=== PATIENT | male | born 1990 | race Caucasian/White ===

== ENCOUNTER 2020-12-08 11:11 | Emergency (ER) | payer OTHER ==
[2020-12-08 11:31] VITALS: BP 118/79; PULSE 65; TEMP 98.3; BMI 30.8
[2020-12-08] MEDS ORDERED: METHOCARBAMOL 500 MG TABLET PO ONE (11:53)
[2020-12-08] MEDS ORDERED: IBUPROFEN 600 MG TABLET (FP) PO ONE ×2 (11:53→12:18)
[2020-12-08] MEDS ORDERED: METHOCARBAMOL 500 MG TABLET ONE (12:18)
== END 2020-12-08 12:20 | disposition home or self-care (01) ==
LOC: JERFT 11:11
DX: S39.012A Strain of muscle, fascia and tendon of lower back, initial encounter (principal)
CPT/HCPCS: 99283-25

== ENCOUNTER 2022-01-30 16:49 | Emergency (ER) | payer BC, OTHER ==
[2022-01-30 16:57] VITALS: BP 123/54; PULSE 57; TEMP 97.5; BMI 26.5
== END 2022-01-30 18:41 | disposition home or self-care (01) ==
LOC: JER 16:49 → JERFT 16:49
PROC: 0HQ0XZZ Repair Scalp Skin, External Approach (ICD-10-PCS; principal; 2022-01-30)
DX: S01.111A Laceration without foreign body of right eyelid and periocular area, initial encounter (principal); Y04.0XXA Assault by unarmed brawl or fight, initial encounter
CPT/HCPCS: 99282-25

== ENCOUNTER 2023-05-14 01:20 | Emergency (ER) | payer OTHER ==
[2023-05-14 01:26] VITALS: BP 121/75; PULSE 81; RESP 18; TEMP 97.7; BMI 27.1
[2023-05-14] MEDS ORDERED: IBUPROFEN 400 MG TABLET (FP) PO ONE ×2 (02:02→02:19)
== END 2023-05-14 02:51 | disposition home or self-care (01) ==
LOC: JER 01:20
DX: M25.561 Pain in right knee (principal); X50.1XXA Overexertion from prolonged static or awkward postures, initial encounter; Y99.0 Civilian activity done for income or pay
CPT/HCPCS: 73560-TC-RT-FY; 99283-25

== ENCOUNTER 2023-08-18 01:51 | Emergency (ER) | payer BC, OTHER ==
[2023-08-18 02:00] VITALS: BP 161/66; PULSE 89; RESP 20; TEMP 98; BMI 27.8
[2023-08-18 02:37] LABS: OPIATES, URI NEGATIVE (NEGATIVE); URINE BARBITURATES NEGATIVE (NEGATIVE)
[2023-08-18 02:38] LABS: METHADONE, UR NEGATIVE (NEGATIVE); PHENCYCLIDINE,URINE NEGATIVE (NEGATIVE); URINE BENZODIAZEPINES NEGATIVE (NEGATIVE)
[2023-08-18 03:03] LABS: COCAINE, UR POSITIVE (NEGATIVE); URINE AMPHETAMINES POSITIVE (NEGATIVE)
== END 2023-08-18 03:44 | disposition left against medical advice (07) ==
LOC: JER 01:51
DX: Z02.83 Encounter for blood-alcohol and blood-drug test (principal); R40.0 Somnolence; S09.93XA Unspecified injury of face, initial encounter; Y04.8XXA Assault by other bodily force, initial encounter
CPT/HCPCS: 70450-TC; 70486-TC; 72125-TC; 80307; 99284-25